=== PATIENT | female | born 1955 | race Caucasian/White ===

== ENCOUNTER 2019-08-24 15:01 | Emergency (ER) | payer OTHER, MEDICARE ==
[~2019-08-24] VITALS: Ht 167.6 cm; Wt 104.3 kg
[2019-08-24] MEDS ORDERED: CYCL10 (16:03)
[2019-08-24] MEDS ORDERED: ALLO100 (16:03)
[2019-08-24] MEDS ORDERED: LORTAB 10 MG-3473 ML (16:03)
== END 2019-08-24 16:40 | disposition home or self-care (01) ==
LOC: ER 15:01
DX: S46.912A Strain of unspecified muscle, fascia and tendon at shoulder and upper arm level, left arm, initial encounter (principal); S20.219A Contusion of unspecified front wall of thorax, initial encounter; I10 Essential (primary) hypertension; M54.6 Pain in thoracic spine; Z86.73 Personal history of transient ischemic attack (TIA), and cerebral infarction without residual deficits; Z88.2 Allergy status to sulfonamides; Z88.0 Allergy status to penicillin; Z88.1 Allergy status to other antibiotic agents; Z79.899 Other long term (current) drug therapy; Z79.891 Long term (current) use of opiate analgesic; V43.53XA Car driver injured in collision with pick-up truck in traffic accident, initial encounter
CPT/HCPCS: 71046; 71120; 73080; 73090; 93005; 93010; 96374; 99284-25; A9270-GY; J3010; Q0163